=== PATIENT | male | born 1965 | race Caucasian/White ===

== ENCOUNTER → 2019-12-12 18:11 | Outpatient (CLI) | payer OTHER, SELFPAY ==
[2019-12-12 19:07] LABS: Basophils # 0.1 K/mm3 (0-0.2); Basophils % 0.5 % (0.1-2.0); Eosinophils # 0.1 K/mm3 (0.0-0.4); Eosinophils % 1.3 % (0.1-12.0); Hematocrit 38.7 % (42.0-52.0); Hemoglobin 13.4 g/dL (14.1-18.0); Lymphocytes # 3.5 K/mm3 (0.7-4.5); Mean Corpuscular HGB Conc 34.6 g/dL (31.8-35.4); Mean Corpuscular Hemoglobin 32.5 pg (27.0-31.2); Mean Corpuscular Volume 93.9 fl (80-94); Mean Platelet Volume 7.5 fl (7.4-10.4); Monocytes # 0.6 K/mm3 (0.1-1.0); Monocytes % 5.8 % (1.7-9.3); Neutrophils # 5.8 K/mm3 (1.8-7.8); Neutrophils % 57.4 % (37.0-80.0); Platelet Count 330 K/mm3 (142-424); Red Blood Count 4.13 M/mm3 (4.60-6.20); Red Cell Distribution Width 14.2 % (11.5-17.5); White Blood Count 10.1 K/mm3 (4.8-10.8)
[2019-12-12 19:09] LABS: Chloride 107 mmol/L (98-107); Potassium 4.2 mmoL/L (3.5-5.1); Sodium 143 mmol/L (136-145)
[2019-12-12 19:11] LABS: Alanine Aminotransferase 28 U/L (12-78); Alkaline Phosphatase 72 U/L (38-126); Aspartate Amino Transferase 36 U/L (17-59); Bilirubin,Total 0.4 mg/dl (0.2-1.3); Blood Urea Nitrogen 16 mg/dl (9-20); Estimated Glomerular Filt Rate 101 ml/min (>60); GFR (African American) 122 ML/MIN (>60)
[2019-12-12 19:12] LABS: Albumin Level 4.4 g/dl (3.5-5.0); Albumin/Globulin Ratio 1.8 (1.1-1.8); Anion Gap 13.2 mEq/L (5-15); Calcium 9.5 mg/dl (8.4-10.2); Carbon Dioxide 27 mmol/L (22.0-30.0); Chol/HDL Ratio 6.5 (1-3.5); Cholesterol 247 mg/dl (140-200); Globulin 2.5 g/dL (1.3-3.2); Glucose 93 mg/dl (74-100); HDL Cholesterol 38 mg/dl (40-60); Total Protein,Serum 6.9 g/dl (6.3-8.2); Triglycerides 332 mg/dl (30-150); VLDL Cholesterol 66 mg/dL (0-40)
[2019-12-12 19:24] LABS: Direct LDL Cholesterol 139.51 mg/dL (100-129)
[2019-12-12 19:25] LABS: 25-OH Vitamin D, Total 45.8 ng/mL (30-100)
[2019-12-12 19:44] LABS: Thyroid Stimulating Hormone 1.27 uIU/mL (0.465-4.68)
[2019-12-12 21:07] LABS: Prostate Specific Ag, Diagnost 0.881 ng/ml (0.0-4.0)
== END ==
PROVIDERS: Visit Provider Nurse Practitioner Family
DX: I10 Essential (primary) hypertension (principal); R53.83 Other fatigue
CPT/HCPCS: 80053; 80061; 82306; 84153; 84436; 84443; 85025

== ENCOUNTER → 2019-12-23 13:56 | Outpatient (CLI) | payer MEDICAID, SELFPAY ==
--- NOTE | 2019-12-23 14:05 | XR_ITS ---
PROCEDURE: XR CHEST 2V CLINICAL HISTORY: dyspnea COMPARISON: No exams were available for comparison FINDINGS: The cardiomediastinal silhouette and pulmonary vascularity are within normal limits. The lungs are clear without infiltrates, suspicious nodules, or pleural effusions. Faint nodularity noted over the left 6th rib anteriorly which may be due to nipple shadow. No acute bony findings. IMPRESSION: No acute findings. Dictated by: Mac Fountain MD 12/23/2019 14:31 Mac Fountain MD in [place] 12/23/2019 14:31
--- NOTE | 2019-12-23 14:22 | ECG_ITS ---
APPROVED REPORT Exam: Resting ECG HR:51 bpm ECG Measurements Heart Rate 51 AXES MO 140 P -11 QRSd 100 QRS -17 QT 420 T 53 QTc 387 Conclusion Sinus bradycardia Leftward axis Otherwise normal ECG Electronically signed by : Jamie Wills, 12/24/2019 08:18:08
== END ==
PROVIDERS: PCP Family Medicine; Visit Provider Family Medicine
DX: R09.2 Respiratory arrest (principal)
CPT/HCPCS: 71046; 93005

== ENCOUNTER → 2020-01-08 10:03 | Outpatient (CLI) | payer MEDICAID, SELFPAY | PROVIDERS: PCP Family Medicine; Visit Provider Family Medicine | DX: R00.1 Bradycardia, unspecified (principal); R09.2 Respiratory arrest | CPT/HCPCS: 93225; 93226 ==

== ENCOUNTER → 2020-02-12 07:28 | Outpatient (CLI) | payer MEDICAID, SELFPAY ==
--- NOTE | 2020-02-12 | CA_ITS ---
APPROVED REPORT Exam: Exercise Treadmill Technologist: Emily Lamar Ht: 6 ft 1 in Wt: 213 lbs BSA: 2.21 m2 HR: 55 bpm BP: 160/94 mmHg Indications: Shortness of Air, chest pain Medical History Medications: Amlodipine,,,,, Omeprazole,,,,, Aspirin,,,,, Losartan,,,,, Atorvastatin,,,,, MeLOXICAM,,,,, Trazodone,,,,, Stress Test Details Test: Stephon HR Resting HR: 58 bpm Max Heart Rate (APMHR): 166 bpm Max HR Achieved: 135 bpm Target HR (85% APMHR): 141 bpm % of APMHR: 81 Recovery HR: 77 bpm BP Resting BP: 160.0/94.0 mmHg Max BP: 236.0/80.0 mmHg Recovery BP: 158.0/98.0 mmHg ECG Clinical Exercise duration: 07:00 min Highest Stage Achieved: Exercise capacity: 10.1 METs Stress ECG Conclusion Resting EKG: Sinus bradycardia, poor R wave progression, cannot rule out old anterior IN. Patient exercised 7:00 on Stephon Protocol. Test stopped due to shortness of air, leg fatigue, increased blood pressure. Symptoms: Shortness of air, leg fatigue. No chest pain. Arrhythmias/Ectopy: None ST-T Changes: 0.[address] depression inferiorly in late recovery. Conclusion: Within normal GXT to heart rate achieved (81% of PM). Hypertension. Myoview images reported separately. Test Summary REST . . . . . . . Sitting REST . . . . . . . Standing REST 03:18 0.0 0.0 58 . 160/ 94 . . Stage 1 01:00 10.0 1.7 90 . . . . Stage 1 02:00 10.0 1.7 104 . . . . Stage 1 03:00 10.0 1.7 112 . 220/ 90 . . Stage 2 01:00 12.0 2.5 116 . . . . Stage 2 02:00 12.0 2.5 120 . . . . Stage 2 . . . . . . . Myoview Injected Stage 2 03:00 12.0 2.5 124 . 232/ 86 . . Stage 3 01:00 14.0 3.4 134 . . . Stop exercise at 07:00 RECOVERY 01:00 0.0 0.0 111 . 236/ 80 . . RECOVERY 02:00 0.0 0.0 96 . 236/ 80 . . RECOVERY 03:00 0.0 0.0 82 . 236/ 80 . . RECOVERY 04:00 0.0 0.0 89 . 183/ 99 . . RECOVERY 05:00 0.0 0.0 71 . 158/ 98 . . RECOVERY 05:14 0.0 0.0 73 . 158/ 98 . . Electronically signed by : Dusty Lozano, 02/13/2020 12:46:20
--- NOTE | 2020-02-12 07:29 | NM_ITS ---
APPROVED REPORT Exam: Nuclear Stress Test Indication: Chest pain, Palpitations, Fatigue, HTN, High cholesterol, Tobacco use, Family history Patient Location: Outpatient Stress Tech: Emily Lamar [place] Tech:Diana Corona, ARRT, RT (R)(N) Ht: 6 ft 1 in Wt: 205 lbs HR: 55 bpm BP: 160/94 mmHg BSA: 2.17 m2 BMI: 27.0 History: Chest pain, Palpitations, Fatigue, HTN, High cholesterol, Tobacco use, Family history Procedure: Patient exercised on Stephon protocol 7:00 minutes and sec, resting heart rate 55 bpm, resting blood pressure 160/94 mmHg, with exercise maximum heart rate achived was 135 bpm which is 81 % of the maximum predicted heart rate and blood pressure was 236/80 mmHg. Test was stopped due to SOA, leg fatigue and elevated blood pressure. Patient denied any complaint of chest pain. Patient has Good exercise capacity, achieved 10.1 METs of workload on treadmill, the blood pressure response to exercise was Hypertensive. Electrocardiogram Resting electrocardiogram showed sinus rhythm, with exercise there is less than 1.[address] segment depression noted from the baseline EKG. The EKG portion of the exercise Myoview is nondiagnostic as patient did not achieve the target heart rate. Cardiac Stress and Resting SPECT Images: Cardiac Stress and Resting SPECT images were obtained using technetium 99m Myoview 32.5 mCi stress and 10.70 mCi at rest. Gated SPECT for analysis of segmental wall motion and calculation of the ejection fraction also done. Cardiac stress and resting SPECT images show uniform myocardial activity, computer derived ejection fraction is 44%, there appears to be transient ischemic dilatation of the left ventricle raising the concerns for presence of balanced ischemia. Right ventricle is mildly enlarged with normal contractility. Conclusion: 1. The EKG portion of the exercise Myoview is nondiagnostic as patient did not achieve the target heart rate, patient has good exercise capacity achieved 10.1 mets of workload on treadmill, the blood pressure response to exercise was hypertensive, there was no exercise-induced chest discomfort. 2. No scintigraphic evidence of reversible ischemia seen, computer derived ejection fraction is 44% with no regional wall motion abnormality, right ventricle is mildly enlarged with normal contractility, there is transient ischemic dilatation of the left ventricle seen, raising the concerns for presence of balanced ischemia. 3. Abnormal exercise Myoview study. Electronically signed by : Dusty Lozano, 02/13/2020 13:47:52
--- NOTE | 2020-02-12 08:56 | HMH.ITSHM ---
Current Home Medications as stated by this patient Alexi Chapman or human resources representative. []TRAZODONE OMEPRAZOLE MELOXICAM LOSARTAN DILTIAZEM ATORVASTATIN ASA
--- NOTE | 2020-02-12 09:01 | CA_ITS ---
APPROVED REPORT EXAM: Comprehensive 2D, Doppler, and color-flow Echocardiogram Plumbing Installer: Mariann Avendano RVT Ht: 6 ft 1 in Wt: 214lbs BSA: 2.21 BP: 146/82 mmHg Indications: SOA,CP,SMOKER,CREWS,HLD,HTN,GERD 2D Dimensions LVOT 2.47 cm (M/F) 1.5-2.5 M-Mode Dimensions RVDd 2.85 cm (0.9-2.6) LA Diam 4.05 cm (1.9-4.0) LVDd 5.43 cm (3.5-5.7) Ao Diam 3.89 cm (2.0-3.7) LVDs 3.00 cm (3.5-5.7) IVSd 0.95 cm (0.6-1.1) PWd 1.09 cm (0.6-1.1) EF (Teich) 75.50% FS 44.80% EDV (Teich) 143.10 mL ESV (Teich) 35.00 mL LV Diastology E Decel Time 257.00 (160-240 msec) E/A Ratio 1.2 MED E' 6.90 (< 7 cm/sec) E'/MED E' Ratio 14.75 (>14) LAT E' 11.80 (<10 cm/sec) E/LAT E' Ratio 8.63 (>14) Mitral Valve MV E Max Aristides. 102.00 (40-130 cm/s) MV A Velocity 86.00 (40-130 cm/s) E/A Ratio 1.19 MV Decel. Time 257.00 (160-240 ms) MV PHT 75.00 ms Pulmonary Valve PV Peak Velocity 94.00 (50-150 cm/s) Tricuspid Valve TR P. Velocity 231.00 cm/s Left Ventricle Left atrium is mildly enlarged, left ventricle is normal size, mild concentric left ventricular hypertrophy, visually estimated ejection fraction 55% with no regional wall motion abnormality, grade 1 diastolic dysfunction seen with tissue Doppler evidence of raise left atrial pressure. Right Ventricle Right atrium and right ventricle mildly enlarged with normal contractility. Aortic Valve Aortic valve is minimally thickened and fibrosed, there is no aortic stenosis or aortic insufficiency. Mitral Valve Mitral valve grossly normal, there is mild mitral regurgitation. Tricuspid Valve Tricuspid valve grossly normal, there is mild tricuspid regurgitation, tricuspid regurgitation jet velocity is inadequate for calculation of the right ventricular systolic pressure. Pulmonic Valve Pulmonic valve is poorly visualized. Great Vessels Aortic root is normal size. Inferior vena cava is dilated without significant inspiratory collapse. Pericardium No significant pericardial effusion noted. Conclusion 1. Biatrial enlargement, normal left ventricular size, mild concentric left ventricular hypertrophy, visually estimated ejection fraction 55% with no regional wall motion abnormality, grade 1 diastolic dysfunction seen with tissue Doppler evidence of raise left atrial pressure. 2. Mildly enlarged right ventricle with normal contractility. 3. Mild mitral and tricuspid regurgitation 4. Inferior vena cava is dilated without significant inspiratory collapse. Electronically signed by : Dusty Lozano, 02/13/2020 12:58:56
== END ==
PROVIDERS: PCP Family Medicine; Visit Provider Nurse Practitioner Family
DX: R07.9 Chest pain, unspecified (principal); R06.00 Dyspnea, unspecified; I49.9 Cardiac arrhythmia, unspecified; E78.5 Hyperlipidemia, unspecified; I10 Essential (primary) hypertension; F17.200 Nicotine dependence, unspecified, uncomplicated
CPT/HCPCS: 78452; 93017; 93306; A9502

== ENCOUNTER → 2020-02-20 07:23 | Outpatient (CLI) | payer MEDICAID, SELFPAY ==
[2020-02-20 07:49] LABS: Basophils # 0.1 K/mm3 (0-0.2); Basophils % 0.4 % (0.1-2.0); Eosinophils # 0.2 K/mm3 (0.0-0.4); Eosinophils % 1.3 % (0.1-12.0); Hemoglobin 14.8 g/dL (14.1-18.0); Lymphocytes # 3.1 K/mm3 (0.7-4.5); Lymphocytes % 25.1 % (10-50); Mean Corpuscular Hemoglobin 31.2 pg (27.0-31.2); Mean Corpuscular Volume 107.6 fl (80-94); Mean Platelet Volume 12.5 fl (7.4-10.4); Monocytes # 0.6 K/mm3 (0.1-1.0); Monocytes % 5.2 % (1.7-9.3); Neutrophils # 8.4 K/mm3 (1.8-7.8); Neutrophils % 68.1 % (37.0-80.0); Platelet Count 356 K/mm3 (142-424); Red Blood Count 4.74 M/mm3 (4.60-6.20); Red Cell Distribution Width 15.5 % (11.5-17.5); White Blood Count 12.4 K/mm3 (4.8-10.8)
[2020-02-20 08:19] LABS: Chloride 106 mmol/L (98-107); Potassium 4.3 mmoL/L (3.5-5.1); Sodium 143 mmol/L (136-145)
[2020-02-20 08:22] LABS: Anion Gap 12.3 mEq/L (5-15); Blood Urea Nitrogen 18 mg/dl (9-20); Calcium 9.8 mg/dl (8.4-10.2); Carbon Dioxide 29 mmol/L (22.0-30.0); Estimated Glomerular Filt Rate 101 ml/min (>60); GFR (African American) 122 ML/MIN (>60); Glucose 113 mg/dl (74-100)
[2020-02-20 08:35] LABS: Coronavirus 19 IgG Antibody Negative (Negative); Coronavirus 19 IgM Antibody Negative (Negative)
== END ==
PROVIDERS: Visit Provider Nurse Practitioner Family
DX: Z01.818 Encounter for other preprocedural examination (principal); Z03.818 Encounter for observation for suspected exposure to other biological agents ruled out; R07.89 Other chest pain; R06.02 Shortness of breath; R94.30 Abnormal result of cardiovascular function study, unspecified; E78.2 Mixed hyperlipidemia; I10 Essential (primary) hypertension; F17.200 Nicotine dependence, unspecified, uncomplicated
CPT/HCPCS: 36415; 80048; 85025; 86328

== ENCOUNTER 2020-02-21 07:47 | Day surgery (SDC) | payer MEDICAID, SELFPAY ==
[2020-02-21] VITALS (15 sets, daily range): BP systolic 108–181; BP diastolic 59–102; PULSE 48–71; RESP 13–18; TEMP 36.6; O2SAT 89–100; BMI 27.9
--- NOTE | 2020-02-21 07:32 | IR_ITS ---
APPROVED REPORT Patient Location: Outpatient Retail Associate: BETTE Toussaint RT (R) PROCEDURES Left heart catheterization Left ventriculogram Selective coronary angiogram INDICATION High risk abnormal Myoview Informed consent was obtained prior to the procedure. COMPLICATIONS NONE Estimated Blood Loss: LESS THAN 10 ML TECHNIQUE One percent lidocaine used to anesthetize the right anterior aspect of the wrist. The right radial artery was accessed via the Seldinger technique. A 6 Swazi sheath was placed in the right radial artery. 2.5 mg of verapamil, 800 mcg of nitroglycerin, 1mg Lidocaine and 5000 U Heparin were given through the arterial sheath. The trap catheter was also used to perform left heart catheterization, left ventriculogram and selective coronary angiogram. At the end of the procedure the sheath was removed good hemostasis was achieved using Traclet band, patient was transferred to the postop holding area in stable condition. ANGIOGRAPHIC RESULTS The left main artery Normal The left anterior descending artery Has proximal 10 to 20% stenoses followed by a mid vessel 20 to 30% stenosis The circumflex artery Is large nondominant and gives rise to a large ramus intermedius with mild 10% proximal luminal irregularities. The circumflex artery itself has mild 10% luminal irregularities The right coronary artery Is a dominant vessel with 10 to 20% diffuse luminal irregularities The AGUILAR ventriculogram reveals Preserved at 60% The left ventricular end-diastolic pressure Elevated at 20 mmHg IMPRESSION Mild nonflow limiting coronary disease as described above Preserved ejection fraction Elevated LVEDP PLAN 1. Risk factor modification 2. Treatment of diastolic dysfunction Electronically signed by : Bobby Kay, 02/21/2020 10:34:03
== END 2020-02-21 13:27 | disposition home or self-care (01) ==
LOC: CATHLAB 07:48
PROVIDERS: PCP Family Medicine; Visit Provider Internal Medicine
DX: R07.89 Other chest pain (principal); E78.2 Mixed hyperlipidemia; I11.0 Hypertensive heart disease with heart failure; R06.02 Shortness of breath; R94.30 Abnormal result of cardiovascular function study, unspecified; I50.32 Chronic diastolic (congestive) heart failure; Z72.0 Tobacco use; I25.118 Atherosclerotic heart disease of native coronary artery with other forms of angina pectoris; Z88.8 Allergy status to other drugs, medicaments and biological substances; Z79.82 Long term (current) use of aspirin; Z79.899 Other long term (current) drug therapy
CPT/HCPCS: 93458; 99152; C1725; C1769; J1644; Q9967

== ENCOUNTER → 2020-10-26 14:19 | Outpatient (CLI) | payer MEDICAID, SELFPAY ==
[2020-10-26 15:48] LABS: Alanine Aminotransferase 22 U/L (12-78); Albumin Level 4.6 g/dl (3.5-5.0); Albumin/Globulin Ratio 1.8 (1.1-1.8); Alkaline Phosphatase 70 U/L (38-126); Anion Gap 13.5 mEq/L (5-15); Aspartate Amino Transferase 31 U/L (17-59); Basophils % 0.3 % (0.1-2.0); Bilirubin,Total 0.5 mg/dl (0.2-1.3); Blood Urea Nitrogen 21 mg/dl (9-20); Calcium 9.2 mg/dl (8.4-10.2); Carbon Dioxide 28 mmol/L (22.0-30.0); Chloride 104 mmol/L (98-107); Chol/HDL Ratio 4.3 (1-3.5); Cholesterol 179 mg/dl (140-200); Eosinophils # 0.1 K/mm3 (0.0-0.4); Eosinophils % 0.8 % (0.1-12.0); Estimated Glomerular Filt Rate 101 ml/min (>60); GFR (African American) 122 ML/MIN (>60); Globulin 2.5 g/dL (1.3-3.2); Glucose 90 mg/dl (74-100); HDL Cholesterol 42 mg/dl (40-60); Hematocrit 41.2 % (42.0-52.0); Hemoglobin 13.7 g/dL (14.1-18.0); Lymphocytes # 3.2 K/mm3 (0.7-4.5); Lymphocytes % 31.6 % (10-50); Mean Corpuscular HGB Conc 33.2 g/dL (31.8-35.4); Mean Corpuscular Hemoglobin 31.1 pg (27.0-31.2); Mean Corpuscular Volume 93.7 fl (80-94); Mean Platelet Volume 8.6 fl (7.4-10.4); Monocytes # 0.6 K/mm3 (0.1-1.0); Monocytes % 5.8 % (1.7-9.3); Neutrophils # 6.2 K/mm3 (1.8-7.8); Neutrophils % 61.5 % (37.0-80.0); Platelet Count 330 K/mm3 (142-424); Potassium 4.5 mmoL/L (3.5-5.1); Red Cell Distribution Width 14.2 % (11.5-17.5); Sodium 141 mmol/L (136-145); Total Protein,Serum 7.1 g/dl (6.3-8.2); Triglycerides 107 mg/dl (30-150); VLDL Cholesterol 21 mg/dL (0-40); White Blood Count 10.1 K/mm3 (4.8-10.8)
[2020-10-26 16:01] LABS: Direct LDL Cholesterol 107.46 mg/dL (100-129)
[2020-10-26 16:06] LABS: 25-OH Vitamin D, Total 45.9 ng/mL (30-100)
[2020-10-26 16:19] LABS: Prostate Specific Ag, Diagnost 0.961 ng/ml (0.0-4.0); Thyroid Stimulating Hormone 1.25 uIU/mL (0.465-4.68)
[2020-10-26 16:39] LABS: Hemoglobin A1C 5.2 % (4.0-6.0)
== END ==
PROVIDERS: Visit Provider Family Medicine
DX: I25.10 Atherosclerotic heart disease of native coronary artery without angina pectoris (principal); I10 Essential (primary) hypertension; E78.5 Hyperlipidemia, unspecified; F17.200 Nicotine dependence, unspecified, uncomplicated; Z79.899 Other long term (current) drug therapy; Z12.5 Encounter for screening for malignant neoplasm of prostate
CPT/HCPCS: 80053; 80061; 82306; 83036; 84153; 84436; 84443; 85025

== ENCOUNTER → 2021-07-06 09:16 | Outpatient (CLI) | payer MEDICAID, SELFPAY ==
--- NOTE | 2021-07-06 09:24 | XR_ITS ---
FINAL REPORT CLINICAL HISTORY: shoulder pain FINDINGS: 3 views of the left shoulder were obtained. There is no acute fracture or dislocation. The joint spaces are intact. There are no soft tissue abnormalities. IMPRESSION: No acute process. Reviewed, Interpreted and Dictated by Nando Epstein MD Transcribed by Lee Aranda Authenticated by Nando Epstein MD on 07/06/2021 10:19:10 AM [facility]
== END ==
PROVIDERS: PCP Family Medicine; Visit Provider Physician Assistant Surgical
DX: M25.512 Pain in left shoulder (principal)
CPT/HCPCS: 73030

== ENCOUNTER → 2021-07-23 15:13 | Outpatient (CLI) | payer MEDICAID, SELFPAY ==
--- NOTE | 2021-07-23 15:13 | MR_ITS ---
FINAL REPORT CLINICAL HISTORY: shoulder pain. LIMITED ROM. SHOULDER PAIN SINCE HOLDING HEAVY OBJECT. FINDINGS: Multiplanar MR imaging of the left shoulder was performed without contrast. There is an intrasubstance tear at the anterior footprint of the supraspinatus tendon involving greater than 50% of tendon thickness. There is mild AC joint degenerative change. No abnormal fluid is seen in the subacromial/subdeltoid bursa. The glenoid labrum is intact. The long head of the biceps tendon is intact. No significant glenohumeral joint effusion is seen. There is no evidence of fracture or dislocation. There is subchondral cyst formation in the greater tuberosity. The musculature is intact. There is no evidence of soft tissue mass. IMPRESSION: Intrasubstance tear of the supraspinatus tendon, greater than 50%. Mild AC joint arthrosis. Subchondral cyst in the greater tuberosity. Reviewed, Interpreted and Dictated by Maurisio Villegas III, MD Transcribed by Lee Aranda Authenticated by Maurisio Villegas III, MD on 07/23/2021 05:01:48 PM [facility]
--- NOTE | 2021-07-23 15:25 | XR_ITS ---
FINAL REPORT CLINICAL HISTORY: RULE OUT METAL FOREIGN BODY FOR MRI.prior hx metal of rt eye FINDINGS: ORBITS TWO VIEW Two views of the orbits were obtained. There is no evidence of intra orbital foreign body. There is no fracture identified. No acute bony abnormality. IMPRESSION: No orbital foreign body identified. Reviewed, Interpreted and Dictated by Maurisio Villegas III, MD Transcribed by Diandra Choe Authenticated by Maurisio Villegas III, MD on 07/23/2021 04:00:56 PM [facility][1]
== END ==
PROVIDERS: PCP Family Medicine; Visit Provider Orthopaedic Surgery
DX: M25.512 Pain in left shoulder (principal); H05.53 Retained (old) foreign body following penetrating wound of bilateral orbits
CPT/HCPCS: 70200; 73221

== ENCOUNTER 2021-08-17 11:56 | Outpatient (RCR) | payer MEDICAID, SELFPAY | END 2021-08-17 12:50 | disposition home or self-care (01) | LOC: OT 11:56 | PROVIDERS: Visit Provider Orthopaedic Surgery | DX: G56.02 Carpal tunnel syndrome, left upper limb (principal); M79.642 Pain in left hand; R20.0 Anesthesia of skin | CPT/HCPCS: 97763 ==

== ENCOUNTER → 2022-05-30 23:18 | Outpatient (CLI) | payer MEDICAID, SELFPAY ==
[2022-05-30 18:44] LABS: Chloride 106 mmol/L (98-107); Potassium 4.7 mmoL/L (3.5-5.1); Sodium 140 mmol/L (136-145)
[2022-05-30 18:47] LABS: Blood Urea Nitrogen 13 mg/dl (9-20); Estimated Glomerular Filt Rate 117 ml/min (>60); GFR (African American) 141 ML/MIN (>60)
[2022-05-30 18:48] LABS: Anion Gap 11.7 mEq/L (5-15); Carbon Dioxide 27 mmol/L (22.0-30.0); Glucose 93 mg/dl (74-100)
== END ==
PROVIDERS: PCP Family Medicine; Visit Provider Family Medicine
DX: E78.5 Hyperlipidemia, unspecified (principal)
CPT/HCPCS: 80048

== ENCOUNTER → 2023-02-24 23:35 | Outpatient (CLI) | payer SELFPAY ==
[2023-02-24 20:15] LABS: Amphetamine/Metha Screen,Urine Negative ng/ml (<1000)
[2023-02-24 20:16] LABS: Cannabinoid Screen,Urine Negative ng/ml (<50)
[2023-02-24 20:17] LABS: Barbiturates Screen,Urine Negative ng/ml (<200)
[2023-02-24 20:18] LABS: Benzodiazepines Screen,Urine Negative ng/ml (<200)
[2023-02-24 20:19] LABS: Cocaine Screen,Urine Negative ng/ml (<300)
[2023-02-24 20:20] LABS: Methadone Screen,Urine Negative ng/ml (<300); Opiate Screen,Urine Negative ng/ml (<300)
[2023-02-24 20:25] LABS: Phencyclidine Screen,Urine Negative ng/ml (<25)
== END ==
PROVIDERS: PCP Family Medicine; Visit Provider Family Medicine
DX: L98.9 Disorder of the skin and subcutaneous tissue, unspecified (principal); Z79.899 Other long term (current) drug therapy
CPT/HCPCS: 80305

== ENCOUNTER 2023-04-19 09:10 | Outpatient (CLI) | payer BC, SELFPAY ==
--- NOTE | 2023-04-19 09:20 | ECG_ITS ---
APPROVED REPORT Exam: Resting ECG HR:53 bpm ECG Measurements Heart Rate 53 AXES NH 147 P 22 QRSd 108 QRS -30 QT 396 T 59 QTc 379 Conclusion SINUS BRADYCARDIA BORDERLINE LEFT AXIS DEVIATION [QRS AXIS < -20] BORDERLINE ECG UNCONFIRMED REPORT Electronically signed by : Alexey Rain MD 04/19/2023 21:45:44
[2023-04-19 09:24] LABS: Microscopic, Urine URINE MICROSCOPIC (MICROSCOPIC)
[2023-04-19 09:51] LABS: Basophils # 0.1 K/mm3 (0-0.2); Basophils % 0.7 % (0.1-2.0); Eosinophils # 0.1 K/mm3 (0.0-0.4); Eosinophils % 1.4 % (0.1-12.0); Hemoglobin 14.5 g/dL (14.1-18.0); Lymphocytes # 3.9 K/mm3 (0.7-4.5); Lymphocytes % 39.3 % (10-50); Mean Corpuscular HGB Conc 33.7 g/dL (31.8-35.4); Mean Corpuscular Hemoglobin 31.9 pg (27.0-31.2); Mean Corpuscular Volume 94.6 fl (80-94); Mean Platelet Volume 7.3 fl (7.4-10.4); Monocytes # 0.6 K/mm3 (0.1-1.0); Monocytes % 5.6 % (1.7-9.3); Neutrophils # 5.3 K/mm3 (1.8-7.8); Platelet Count 340 K/mm3 (142-424); Red Blood Count 4.55 M/mm3 (4.60-6.20); Red Cell Distribution Width 13.6 % (11.5-17.5)
[2023-04-19 10:06] LABS: Appearance,Urine CLEAR (Clear); Bilirubin,Urine Negative (Negative); Blood, Urine Negative (Negative); Color,Urine YELLOW (Yellow); Glucose,Urine (UA) Negative (Negative); Ketones,Urine Negative (Negative); Leukocyte Esterase,Urine Negative (Negative); Nitrate,Urine Negative (Negative); Protein,Urine Negative (Negative); Urobilinogen,Urine 0.2 EU/dl (0.2)
[2023-04-19 10:18] LABS: Squamous Epithelial Cell,Urine Occasional #/hpf (0-5)
[2023-04-19 10:21] LABS: Anion Gap 12.3 mEq/L (5-15); Blood Urea Nitrogen 11 mg/dl (9-20); Calcium 9.6 mg/dl (8.4-10.2); Carbon Dioxide 28 mmol/L (22.0-30.0); Chloride 105 mmol/L (98-107); Estimated Glomerular Filt Rate 100 ml/min (>60); GFR (African American) 121 ML/MIN (>60); Glucose 96 mg/dl (74-100); Potassium 4.3 mmoL/L (3.5-5.1); Sodium 141 mmol/L (136-145)
== END 2023-04-19 23:59 ==
LOC: LAB 09:12
PROVIDERS: PCP Family Medicine; Visit Provider Surgery
DX: K42.9 Umbilical hernia without obstruction or gangrene (principal)
CPT/HCPCS: 36415; 80048; 81001; 85025; 93005

== ENCOUNTER 2023-04-27 07:39 | Day surgery (SDC) | payer BC, SELFPAY ==
[2023-04-27] VITALS (8 sets, daily range): BP systolic 127–148; BP diastolic 83–99; PULSE 65–92; RESP 16–18; TEMP 36.4–37.2; O2SAT 92–95; BMI 28.0
[2023-04-27] MEDS: LACTATED RINGERS 1000ML 1,000 ML 100 ML IV (08:33)
[2023-04-27] MEDS: CEFAZOLIN SODIUM 2 GM in 0.9 % SODIUM CHLORIDE 100 ML IV (10:53)
[2023-04-27] MEDS: LIDOCAINE 1% 20ML MDV 20 ML (10:54)
--- NOTE | 2023-04-27 10:56 | P.PNANES_ITS ---
[facility] Disclaimer: The information contained in this section may have been updated after the patient was seen, as this information can be updated by other users. Medical History CAD (coronary artery disease) Elevated left ventricular end-diastolic pressure (LVEDP) Surgical History History of laparoscopic cholecystectomy History of tooth extraction Family History Other Family history of cancer Family history of hyperlipidemia Family history of hypertension Family history of stroke Social History Smoking Status: Current every day smoker tobacco type: cigarettes packs per day: 2 alcohol intake: current substance use type: denies use current occupational status: unemployed Travel in the last 8 weeks: None household members: spouse housing: apartment [facility] Anesthesia Checklist Patient Identification Patient Identification: Arm Band and Family Structural Data Admitted From: Home Planned Operative Procedure/s: Open Right Inguinal Hernia Repair Consent for Planned Operative Procedure(s) Verified: Yes Verified Documents: Surgical Consent and History and Physical NPO Status Verified Time NPO: 00:00 Additional verifications Anesthesia Reactions: No Hx Blood Transfusions: No Blood Transfusion Reaction: No Airway Assessment Mallampati Score:: Class II C-Spine Mobility Assessed: Yes TMJ Mobility Assessed: Yes Dentition: Edentulous Neurological Assessment Level of Consciousness: Awake and Alert Anesthesia Plan Anesthesia Risk discussed: Yes Anesthesia Plan: Verified ASA Class: II Anesthesia Type: General
--- NOTE | 2023-04-27 11:54 | EXP.OP.NOTE ---
Date of procedure: 04/27/23 Pre-op Diagnosis:: Right inguinal hernia Post-op Diagnosis:: Same Procedure performed:: Open right inguinal hernia repair Surgeon:: Henrique Piedra MD Anesthesia: XAVIER Estimated blood loss (mL): 15 Operative findings:: Indirect defect Operative note:: After informed consent was obtained the patient was taken to the operating room and placed in the supine position. General anesthesia was induced and his abdomen and groin/scrotum were prepped and draped in a sterile fashion. After infiltration with local anesthetic an oblique right groin incision was made. Electrocautery was utilized to transect through Laurie's fascia to the level of the external aponeurosis. The external aponeurosis was sharply opened to the level of the external ring. The contents of the canal were carefully elevated. An indirect defect was noted. Incarcerated preperitoneal fat and hernia sac were dissected free from surrounding tissue. No obvious injury to the vas deferens or vasculature was noted. An extra-large PerFix plug was secured in position with interrupted Ethibond. The PerFix overlay was then secured to the shelving edge inferiorly and fascial margin superiorly with interrupted Ethibond. The external aponeurosis was reapproximated with running 2-0 Vicryl. Laurie's fascia was closed in the same manner. Skin was closed with the the INSORB stapler. Dressings were applied and the patient was transferred to recovery in stable condition. Condition: stable Disposition: PACU Specimens:: None Complications:: No immediate
--- NOTE | 2023-04-27 11:59 | EXP.ANES.I ---
[facility] Anesthesia Record Part I Anesthesia Record I Intake, IV Amount: 1,400 Hydration: Adequate Estimated blood loss (mL): 5 Urine output (mL): 400 Blood Products used (#): none Blood Pressure: 127/98 SaO2: 94 Pulse Rate: 92 Airway Patency: Patent Respiratory Rate: 16 Temperature: 99 F Patient is:: Drowsy and Stable Stable to PACU at:: 11:55
[2023-04-27 15:12] LABS: Microscopic,Cath URINE MICROSCOPIC (MICROSCOPIC)
[2023-04-27 15:26] LABS: Appearance,Urine/Cath CLEAR (Clear); Bilirubin,Cath Negative (Negative); Blood, Urine/Cath Negative (Negative); Color,Urine/Cath YELLOW (Yellow); Glucose,Urine/Cath (UA) Negative (Negative); Ketones,Urine/Cath Negative (Negative); Leukocyte Esterase,Cath Negative (Negative); Nitrate,Cath Negative (Negative); Protein,Urine/Cath Negative (Negative); Urobilinogen,Cath 0.2 EU/dl (0.2)
[2023-04-27 15:59] LABS: Bacteria,Urine/Cath TRACE /lpf; RBC,Urine/Cath Occasional # /hpf (0-3)
--- NOTE | 2023-04-28 13:05 | EXP.ANES.II ---
[facility] Anesthesia Record Part II Anesthesia Record Part II Discharge Time: 12:25 Destination: Surgical Day Care (OP Surgery) PACU nurse assessment reviewed?: Yes Patient Condition:: Good Anesthesia Complications:: None Swallowing reflex intact?: Yes Airway Patency: Patent Cyanosis?: No Blood Pressure: 144/99 SaO2: 95 Respiratory Rate: 16 Pulse Rate: 69 Temperature: 9.5 F Mental Status: Alert & Oriented Pain level:: 0 Nausea and/or vomitting:: None Intake, IV Amount: 0 Hydration: Adequate
[2023-04-28 13:06] VITALS: BP 144/99; PULSE 69; RESP 16; TEMP -12.5; TEMP 9.5; O2SAT 95
== END 2023-04-27 12:44 | disposition home or self-care (01) ==
PROVIDERS: PCP Family Medicine; Visit Provider Surgery
PROC: (CPT 49507; principal; 2023-04-27 09:15)
DX: K40.30 Unilateral inguinal hernia, with obstruction, without gangrene, not specified as recurrent (principal)
CPT/HCPCS: 49507; 81001; 96374; J3490; J2405

== ENCOUNTER 2023-12-07 19:51 | Outpatient (CLI) | payer BC, SELFPAY | END 2023-12-07 23:59 | disposition home or self-care (01) | LOC: LAB.DROPOF 19:53 | PROVIDERS: PCP Family Medicine; Visit Provider Family Medicine | DX: Z02.9 Encounter for administrative examinations, unspecified (principal) ==

== ENCOUNTER 2024-12-09 13:54 | Outpatient (CLI) | payer OTHER, SELFPAY ==
--- NOTE | 2024-12-09 14:30 | MR_ITS ---
FINAL REPORT CLINICAL HISTORY: Back pain w/RLE radicular pain RIGHT LEG GOING NUMB STARTS AT WAIST AND GOES TO TOES X FEW YEARS FINDINGS: Multiplanar MR imaging of the lumbar spine was performed without and with contrast. On the sagittal T2-weighted images, disc degeneration is seen throughout. There is grade 1 spondylolisthesis of L5 on S1 with advanced disc space narrowing at this level. There is no evidence of fracture. T12-L1: No significant canal stenosis or neuroforaminal narrowing. L1-2: No significant canal stenosis or neuroforaminal narrowing. L2-3: No significant canal stenosis or neuroforaminal narrowing. L3-4: Mild diffuse disc bulge with mild bilateral neuroforaminal narrowing. L4-5: Moderate diffuse disc bulge with endplate hypertrophy. Bilateral facet hypertrophy is identified. Moderate left and mild to moderate right neural foraminal narrowing. L5-S1: Endplate hypertrophy with mild bilateral neuroforaminal narrowing. No abnormal contrast enhancement is identified. IMPRESSION: Multilevel degenerative disc disease with moderate left neuroforaminal narrowing at L4-5. Reviewed, Interpreted and Dictated by Nando Epstein MD Transcribed by Bren Blanchard Authenticated and [facility]
[2024-12-09 14:39] LABS: Blood Urea Nitrogen 17 mg/dl (9-20); Creatinine,Serum 0.70 mg/dl (0.66-1.25); Estimated Glomerular Filt Rate 116 ml/min (>60); GFR (African American) 140 ML/MIN (>60)
[2024-12-09] MEDS: SODIUM CHLORIDE 0.9% 10ML SYR (RAD ONLY) 10 ML IV (15:24)
[2024-12-09] MEDS: GADOTERIDOL INJ 20ML SYRINGE 20 ML IV (15:24)
== END 2024-12-09 23:59 | disposition home or self-care (01) ==
LOC: RAD 13:56
PROVIDERS: PCP Family Medicine; Visit Provider Family Medicine
DX: M51.16 Intervertebral disc disorders with radiculopathy, lumbar region (principal); M48.061 Spinal stenosis, lumbar region without neurogenic claudication
CPT/HCPCS: 36415; 72158; 82565; 84520; A9576

== ENCOUNTER 2025-01-31 15:17 | Outpatient (CLI) | payer OTHER, SELFPAY ==
[2025-01-31 20:32] LABS: D-Dimer 0.81 ug/mL (0.0-0.5)
== END 2025-01-31 23:59 ==
LOC: LAB.DROPOF 02-03 10:49
PROVIDERS: PCP Family Medicine; Visit Provider Family Medicine
DX: M79.604 Pain in right leg (principal)
CPT/HCPCS: 85378

== ENCOUNTER 2025-02-04 13:46 | Outpatient (CLI) | payer OTHER, SELFPAY ==
--- NOTE | 2025-02-04 14:00 | CA_ITS ---
FINAL REPORT CLINICAL HISTORY: Right posterior Knee pain,assymetric swelling FINDINGS: DUPLEX VENOUS SONOGRAPHY OF THE RIGHT LOWER EXTREMITY Multiple transverse and longitudinal scans were performed of the femoropopliteal deep venous system, with augmentation and compression maneuvers. Normal phasic flow was noted in the visualized deep venous system. No intraluminal increased echogenicity is noted to suggest thrombus. There is normal compression and augmentation of the venous structures. No abnormal venous collaterals are seen. IMPRESSION: No evidence of deep venous thrombosis of the right lower extremity. Reviewed, Interpreted and Dictated by Sarika Moses MD Transcribed by Bren Blanchard Authenticated and [facility]
== END 2025-02-04 23:59 | disposition home or self-care (01) ==
LOC: RT 13:46
PROVIDERS: PCP Family Medicine; Visit Provider Family Medicine
DX: M79.604 Pain in right leg (principal); R60.0 Localized edema; R79.89 Other specified abnormal findings of blood chemistry
CPT/HCPCS: 93971